=== PATIENT | female | born 1985 | race Caucasian/White ===

== ENCOUNTER 2017-10-12 11:48 | Emergency (ER) | payer OTHER ==
[~2017-10-12] VITALS: Ht 162.6 cm; Wt 63.5 kg
--- NOTE | 2017-10-12 12:10 | ED GENERAL ADULT ---
History of Present Illness General Chief Complaint: General Adult Stated Complaint: SENT IN BY MD FOR FLUIDS Source: patient Exam Limitations: no limitations Vital Signs & Intake/Output Vital Signs & Intake/Output Vital Signs Date Time Temp Pulse Resp B/P B/P Pulse O2 O2 Flow FiO2 Mean Ox Delivery Rate 10/12 1425 98.7 66 20 127/70 100 Room Air 10/12 1201 98.5 84 16 126/78 98 Allergies Coded Allergies: Penicillins (Mild, RASH 10/12/17) Sulfa (Sulfonamide Antibiotics) (Mild, UNKNOWN 10/12/17) Triage Note: RECEIVED 32 YO FEMALE SENT BY PMD FOR IV FLUIDS. PT WAS SEEN AT [facility] YESTERDAY AND DX WITH NON INFECTIOUS COLITIS. PT REPORTS BLOODY DIARRHEA X FEW DAYS WITH 10/[address] SCAN DONE YESTERDAY. Triage Nurses Notes Reviewed? yes Onset: Gradual Duration: day(s): Timing: constant HPI: 32 y/o female with a h/o hypothyroid presenting with generalized weakness and light headedness since last night. Has been having ~4 episodes of bloody diarrhea per day with generlized abdominal pain x3-4 days. No fevers, nausea, vomiting, dysuria. No traverl, abx use, sick contacts, foul foods, or recent hospitalizations. Was seen at [facility] yesterday and dx with colitis via CT scan. Stool cultures were sent, not started on abx until cx results come back. She was discharged home with rx bentyl and dilaudid. Reports that after she was discharge she started to have light headedness and generalized weakness. Called her PMD who told her to come to the ER for IV fluids and eval. (Lindsay Atkinson) Past History Travel History Traveled to [place] past 21 day No Medical History Any Pertinent Medical History? see below for history Endocrine: hypothyroidism Surgical History Surgical History: non-contributory Family History Hx Contributory? No (Lindsay Atkinson) Review of Systems Review of Systems Constitutional: Reports: no symptoms. EENTM: Reports: no symptoms. Respiratory: Reports: no symptoms. Cardiovascular: Reports: no symptoms. GI: Reports: see HPI. Genitourinary: Reports: no symptoms. Musculoskeletal: Reports: no symptoms. Skin: Reports: no symptoms. Neurological/Psychological: Reports: see HPI. Hematologic/Endocrine: Reports: no symptoms. Immunologic/Allergic: Reports: no symptoms. All Other Systems: Reviewed and Negative (Lindsay Atkinson) Physical Exam Physical Exam General Appearance: well developed/nourished, no apparent distress, alert, awake , comfortable Comments: Gen.: Well-nourished, well-developed, no acute distress. Head: Normocephalic, atraumatic. Eyes: Normal inspection bilaterally Ears: Normal inspection bilaterally Nose: Normal inspection Throat: Moist mucous members Neck: Normal inspection Lungs: clear to auscultation bilaterally, normnal breath sounds Heart: regular rate and rhythm Abdomen: soft, nondistended, normal bowel sounds, diffuse tenderness to palpation that does not localize, no rebound or guarding Extremities: Normal inspection Neurologic: alert and oriented x3, cranial nerves II through XII intact, sensation intact, motor strength 5 out of 5, reflexes 2+, cerebellar function intact, able to ambulate with a steady gait Skin: warm and dry Psychiatric: Normal mood and affect, no apparent delusions or hallucinations, behavior appropriate Core Measures ACS in differential dx? No CVA/TIA Diagnosis: No Sepsis Present: No Sepsis Focused Exam Completed? No (Lindsay Atkinson) Progress Differential Diagnoses I considered the following diagnoses in my evaluation of the patient: [ Dehydration versus electrolyte derangement versus infectious/inflammatory colitis] Plan of Care: Orders Procedure Date/time Status URINE 10/12 1206 Complete URINALYSIS 10/12 1205 Complete PHOSPHORUS 10/12 1205 Complete MAGNESIUM 10/12 1205 Complete LIPASE 10/12 1205 Complete LACTIC ACID 10/12 1205 Complete COMPREHENSIVE METABOLIC PANEL 10/12 1205 Complete CBC WITHOUT DIFFERENTIAL 10/12 1205 Complete Laboratory Tests 10/12/17 1505: Lactic Acid Cancelled 10/12/17 1348: Urine Test NEGATIVE 10/12/17 1348: Urine Color STRAW, Urine Clarity CLEAR, Urine pH 6.5, Ur Specific Grethel 1.010, Urine Protein NEG, Urine Ketones TRACE H, Urine Nitrite NEG, Urine Bilirubin NEG, Urine Urobilinogen 0.2, Ur Leukocyte Esterase NEG, Ur Microscopic EXAM NOT REQUIRED, Urine Hemoglobin NEG, Urine Glucose NEG 10/12/17 1242: Anion Gap 5, Estimated GFR > 60, BUN/Creatinine Ratio 8.0, Glucose 96, Lactic Acid 0.6 L, Calcium 8.4, Phosphorus 2.6, Magnesium 2.2, Total Bilirubin 0.2, AST 16, ALT 28, Alkaline Phosphatase 79, Total Protein 6.5, Albumin 3.5, Globulin 3.0, Albumin/Globulin Ratio 1.2, Lipase 34, CBC w Diff NO MAN DIFF REQ, RBC 4.16 L, MCV 87.3, MCH 30.6, MCHC 35.0, RDW 12.8, MPV 7.4, Gran % 76.8 H, Lymphocytes % 15.2 L, Monocytes % 7.7, Eosinophils % 0.2, Basophils % 0.1, Absolute Granulocytes 10.0 H, Absolute Lymphocytes 2.0, Absolute Monocytes 1.0 H, Absolute Eosinophils 0, Absolute Basophils 0 Labs showed mild leukocytosis to 13 are unremarkable. Given normal saline bolus in the emergency department and reports improvement in her symptoms. At this time she is feeling well and requesting to be discharged home. Instructed to continue her Bentyl as needed for abdominal pain. She will follow-up with her stool cultures from [facility] to inquire whether or not she needs antibiotics for her colitis. She will follow-up with her PMD for reevaluation and given strict return precautions. Initial ED EKG: none (Lindsay Atkinson) Departure Departure Disposition: HOME OR SELF CARE Condition: Stable Clinical Impression Primary Impression: Colitis Additional Instructions: Continue taking Bentyl as prescribed. Maintain adequate fluid intake at home. Follow-up on your stool cultures from [facility]. Follow-up with your primary care provider for reevaluation. Return to the emergency department for any new or worsening symptoms. Departure Forms: Customer Survey General Discharge Information (Lindsay Atkinsno) PA/MUD MIXER HELPER Co-Sign Statement Statement: ED Attending supervision documentation- [] I saw and evaluated the patient. I have also reviewed all the pertinent lab results and diagnostic results. I agree with the findings and the plan of care as documented in the PA's/MUD MIXER HELPER's documentation. [X] I have reviewed the ED Record and agree with the PA's/MUD MIXER HELPER's documentation. [] Additions or exceptions (if any) to the PAs/MUD MIXER HELPER's note and plan are summarized below: [] (Greg Payton DO) Critical Care Note Critical Care Note Critical Care Time: non-applicable (Lindsay Atkinson)
[2017-10-12 12:54] LABS: ABSOLUTE BASOPHIL COUNT 0 /CUMM (0.0-0.2); ABSOLUTE EOSINOPHIL COUNT 0 /CUMM (0.0-0.7); BASOPHIL % 0.1 % (0.0-2.0); EOSINOPHIL % 0.2 % (0-5); GRANULOCYTE % 76.8 % (42.2-75.2); HEMATOCRIT 36.3 % (37-47); MEAN CORPUSCULAR HGB 30.6 PG (27.0-31.0); MEAN CORPUSCULAR VOLUME 87.3 FL (81.0-99.0); MEAN PLATELET VOLUME 7.4 FL (7.4-10.4); PLATELET COUNT 267 /CUMM (130-400); RBC DISTRIBUTION WIDTH 12.8 % (11.5-14.5); RED BLOOD CELL CT 4.16 /CUMM (4.20-5.40)
[2017-10-12 14:25] VITALS: BP 127/70
== END 2017-10-12 14:29 ==
LOC: ERH 11:48
PROVIDERS: Physician Assistant
DX: K52.9 Noninfective gastroenteritis and colitis, unspecified (principal); R53.1 Weakness; R42 Dizziness and giddiness; R19.7 Diarrhea, unspecified; R10.84 Generalized abdominal pain; E03.9 Hypothyroidism, unspecified
CPT/HCPCS: 81003; 81025; 96361; 96374; J2930